=== PATIENT | male | born 1950 | race Caucasian/White ===

== ENCOUNTER 2017-09-15 12:51 | Outpatient (CLI) | payer MEDICARE, BC | END 2017-09-15 12:52 | disposition home or self-care (01) | LOC: LABBT 12:51 | PROVIDERS: ATTEND Neurological Surgery | DX: Z01.818 Encounter for other preprocedural examination (principal); M54.12 Radiculopathy, cervical region ==

== ENCOUNTER 2017-09-21 09:47 | Day surgery (SDC) | payer MEDICARE, BC ==
[2017-09-15 13:11] VITALS: BMI 36.0
--- NOTE | 2017-09-20 21:31 | HP ---
HISTORY OF PRESENT ILLNESS: Mr. Resendiz is the of a patient of ours, Michelle Resendiz, who is here for evaluation of right upper extremity C7 radiculopathy. MRI from [facility] reveals ne uroforaminal narrowing of moderate to severe degree throughout the cervical spine, but particularly t o the right at C6-C7. He has not treated this with anything yet, however, but would like to pursue s urgery if possible. PHYSICAL EXAMINATION: The patient is alert and oriented x3. Gait is normal, no ataxia. Upper extre mity motor exam is normal. He has a positive Spurling's to the right. Reflexes are equal and presen t bilaterally at the biceps tendon. PAST MEDICAL HISTORY: Significant for leg and back problems. CURRENT MEDICATIONS: Tramadol. ALLERGIES: No known drug allergies. PAST SURGICAL HISTORY: Appendectomy. ASSESSMENT: Cervical radiculopathy. PLAN: Dr. Calderon met with the patient, reviewed imaging, and ultimately advocated for a C6-C7 ACDF. He explained to the patient the risks, benefits, and alternatives of the procedure. The patient expr essed understanding and would like to move forward with surgery as discussed. I do believe the patie nt is mentally competent and capable of making medical decisions for himself and we will move forward with surgery as planned.
[2017-09-21] MEDS ORDERED: CEFAZOLIN/Water 2 GM/20 ML SYRINGE ONE ×2 (10:13→15:07)
[2017-09-21] MEDS ORDERED: Fentanyl 250 MCG/5 ML VIAL ONE (10:30)
[2017-09-21] MEDS ORDERED: Midazolam HCl 2 mg/2 ml Vial ONE (10:30)
[2017-09-21] MEDS ORDERED: Thrombin 5000 UNITS/5 ML VIAL ONE (10:31)
[2017-09-21] MEDS ORDERED: Fentanyl 100 MCG/2 ML VIAL ONE (12:42)
--- NOTE | 2017-09-21 14:34 | OP ---
DATE OF PROCEDURE: 09/21/2017 SURGEON: Dr. Leoncio Calderon. CREDIT UNION TELLER: Jose Stiles PA-C. INDICATION: Pain. DIAGNOSIS: C7 radiculopathy. PROCEDURE: Anterior cervical discectomy and fusion. ANESTHESIA: General. TECHNIQUE: The patient was brought into the operating room and placed under general anesthesia. He was placed on the table in supine position. A transverse incision was planned over the lateral aspec t of the neck on the right. After prepping and draping and after an appropriate operative pause, the incision was created. The underlying platysma muscle was identified and incised. A blunt tissue pl ane anterior to the sternocleidomastoid muscle was used to gain access to the prevertebral space. Se lf-retaining retractors were placed in the wound for optimal exposure. There was a large anterior os teophyte covering, the disk space at C6-C7. In fact, the two adjacent superior cephalad disks also a ppeared to be fused anteriorly. The osteophyte was removed. Disk material was removed. There was a partially calcified partially fused disk segment at this location at C6-C7. After decompressing the disk and decompressing over the exiting C7 nerve root, lordotic PEEK cage packed with allograft and autograft material was placed within the interbody space. Due to a fairly rigid bony fusion along th e lateral confines of C6-C7, I chose not to put an anterior cervical plate or screws in. The wound w as irrigated. Hemostasis was maintained throughout. The wound was then closed in anatomic layers an d a pressure dressing was applied. There were no known procedure complications.
[2017-09-21] MEDS ORDERED: Tamsulosin HCl 0.4 MG CAP ONE (14:58)
[2017-09-21] MEDS ORDERED: Glycopyrrolate 0.2 MG/ML 5 ML SYRINGE ONE (16:24)
[2017-09-21] MEDS ORDERED: Dexamethasone 20 MG/5 ML VIAL ONE (16:24)
[2017-09-21] MEDS ORDERED: Lidocaine 1% PF 5 ML VIAL ONE (16:24)
[2017-09-21] MEDS ORDERED: Propofol 200 MG/20 ML VIAL ONE (16:24)
[2017-09-21] MEDS ORDERED: Vecuronium 10 MG VIAL ONE (16:24)
[2017-09-21] MEDS ORDERED: Ondansetron HCl/PF 4 MG/2 ML Vial ONE (16:24)
== END 2017-09-21 15:25 | disposition home or self-care (01) ==
LOC: SDC 09:47
PROVIDERS: ATTEND Neurological Surgery
PROC: 0RG20A0 Fusion of 2 or more Cervical Vertebral Joints with Interbody Fusion Device, Anterior Approach, Anterior Column, Open Approach (ICD-10-PCS; principal; 2017-09-21)
DX: M54.12 Radiculopathy, cervical region (principal); Z79.899 Other long term (current) drug therapy; Z90.49 Acquired absence of other specified parts of digestive tract
CPT/HCPCS: 76001; 96374; J1100; J1170; J2001; J2250; J2405; J2704; J3010

== ENCOUNTER 2017-11-22 12:34 | Outpatient (CLI) | payer MEDICARE, BC ==
--- NOTE | 2017-11-22 13:28 | RAD ---
CERVICAL SPINE THREE VIEWS: History: N54.12 cervical radiculopathy. Comparison: None. FINDINGS: Open mouth odontoid view is normal. Severe degenerative disc space height loss at C4-5, C5-6. There i s a discectomy spacer at C6-7. No acute fracture or malalignment. Anterolisthesis is present at C3 over C4, approximately 2 mm. IMPRESSION: Degenerative changes. No acute abnormality. POS: YASEMIN
== END 2017-11-22 12:35 | disposition home or self-care (01) ==
LOC: TBSIIMAG 12:34
PROVIDERS: ATTEND Neurological Surgery
DX: M47.22 Other spondylosis with radiculopathy, cervical region (principal)
CPT/HCPCS: 72040

== ENCOUNTER 2024-09-28 00:44 | Inpatient (IN) | payer MEDICARE, BC ==
[2024-09-29] MEDS ORDERED: Calcium Carbonate 500 MG ChewTAB PO PRN (01:12)
[2024-09-29] MEDS ORDERED: Senokot S 8.6-50 MG TAB PO PRN (01:12)
[2024-09-29] MEDS ORDERED: traMADol HCl 50 MG TAB PO PRN (01:12)
[2024-09-29] MEDS ORDERED: Nitroglycerin 0.4 MG TAB (25 Tab Bottle) SL PRN (01:12)
[2024-09-29] MEDS ORDERED: Diltiazem HCl/D5W 125 MG in Premix 1 BAG IVPB SCH (01:30)
[2024-09-29 01:40] VITALS: BMI 34.9
[2024-09-29] MEDS: Magnesium 2 GM/50 ML(in water) 2 GM in Premix 1 BAG IVPB SCH (01:58)
[2024-09-29] MEDS: Acetaminophen 325 MG TAB PO PRN (02:00)
[2024-09-29] MEDS: Diltiazem HCl/D5W 125 MG in Premix 1 BAG IVPB SCH (02:29)
[2024-09-29] MEDS: Nicotine 14 MG PATCH TD PRN (02:46)
[2024-09-29] MEDS: Communication Order-Pharmacy FS ONE (03:25)
[2024-09-29 04:31] LABS: #Basophils 0.05 10x3/uL (0.0-0.2); %Basophils 0.6 % (0.0-1.0); %Eosinophils 1.4 % (0.0-10.0); %Lymphocytes 22.6 % (21.0-51.0); %Monocytes 10.8 % (0.0-10.0); %Neutrophils 64.2 % (42.0-75.0); Hematocrit 45.2 % (42.0-52.0); Hemoglobin 15.8 g/dL (14.0-18.0); Mean Corpuscular Hemoglobin 34.6 pg (27.0-31.0); Mean Corpuscular Volume 99.1 fL (78.0-98.0); Mean Platelet Volume 8.9 fL (7.4-10.4); Platelet Count 168 10x3/uL (130-400); RBC Distribution Width 12.9 % (11.5-14.5); Red Blood Cell (RBC) Count 4.56 mill/uL (4.70-6.10)
[2024-09-29 04:52] LABS: Hemoglobin A1c 5.1 % (4.0-6.0)
[2024-09-29 04:58] LABS: Anion Gap 15 mmol/L (10-20); BUN (Urea Nitrogen) 18 mg/dL (8.4-25.7); Calc. Creatinine Clearance 106 mL/min (70-130); Calcium 9.2 mg/dL (7.8-10.44); Carbon Dioxide 25 mmol/L (23-31); Cardiac Risk 2.7 (Less than 4.5); Chloride 103 mmol/L (98-107); Cholesterol 163 mg/dl (< 200 Desired); Estimated GFR 90; Glucose 131 mg/dL (83-110); HDL Cholesterol 60 mg/dL (>60 Neg Risk); LDL Cholesterol, Calculated 70 mg/dL; Potassium 3.7 mmol/L (3.5-5.1); Sodium 139 mmol/L (136-145); Triglycerides 163 mg/dL (Less than 150)
[2024-09-29] MEDS: Enoxaparin 100 MG (1 mL) SYRINGE SC SCH (08:26)
[2024-09-29] MEDS: Famotidine 20 MG TAB PO SCH (08:27)
[2024-09-29] MEDS: Thiamine 100 MG TAB PO SCH (08:27)
[2024-09-29] MEDS: Metoprolol Tartrate 25 MG TAB PO SCH (08:27)
[2024-09-29] MEDS: Cyanocobalamin (Vitamin B-12) 1,000 MCG TAB PO SCH (08:27)
[2024-09-29] MEDS: Multivit, Therapeutic 1 TAB PO SCH (08:27)
[2024-09-29] MEDS: Potassium Chloride 20 MEQ TAB PO SCH (08:27)
[2024-09-29] MEDS: Folic Acid 1 MG TAB PO SCH (08:27)
[2024-09-30 05:16] LABS: #Basophils 0.07 10x3/uL (0.0-0.2); %Basophils 0.8 % (0.0-1.0); %Eosinophils 1.5 % (0.0-10.0); %Lymphocytes 25.4 % (21.0-51.0); %Monocytes 12.3 % (0.0-10.0); %Neutrophils 59.6 % (42.0-75.0); Hematocrit 44.1 % (42.0-52.0); Hemoglobin 15.4 g/dL (14.0-18.0); Mean Corpuscular HGB CONC 34.9 g/dL (32.0-36.0); Mean Corpuscular Hemoglobin 34.7 pg (27.0-31.0); Mean Corpuscular Volume 99.3 fL (78.0-98.0); Mean Platelet Volume 8.9 fL (7.4-10.4); Platelet Count 159 10x3/uL (130-400); Red Blood Cell (RBC) Count 4.44 mill/uL (4.70-6.10)
[2024-09-30 06:41] LABS: Chloride 106 mmol/L (98-107); Sodium 136 mmol/L (136-145)
[2024-09-30 06:42] LABS: Calcium 9.7 mg/dL (7.8-10.44); Glucose 95 mg/dL (83-110)
[2024-09-30 06:44] LABS: Anion Gap 16 mmol/L (10-20); Carbon Dioxide 19 mmol/L (23-31)
[2024-09-30 06:46] LABS: BUN (Urea Nitrogen) 19 mg/dL (8.4-25.7); Calc. Creatinine Clearance 119 mL/min (70-130); Estimated GFR 94
[2024-09-30 06:48] LABS: Magnesium 1.9 mg/dL (1.6-2.6); Potassium 4.7 mmol/L (3.5-5.1)
[2024-09-30] MEDS: Nicotine 21 MG PATCH TD SCH (08:10)
[2024-09-30] MEDS: dilTIAZem 125 MG in Sodium Chloride 0.9% 100 ML IVPB SCH (13:15)
[2024-10-01] MEDS: Diltiazem HCl/D5W 125 MG in Premix 1 BAG IVPB SCH (02:21)
[2024-10-01 04:16] LABS: Hematocrit 43.2 % (42.0-52.0); Hemoglobin 15.2 g/dL (14.0-18.0); Platelet Count 166 10x3/uL (130-400)
[2024-10-01 10:26] LABS: Anion Gap 13 mmol/L (10-20); BUN (Urea Nitrogen) 17 mg/dL (8.4-25.7); Calc. Creatinine Clearance 127 mL/min (70-130); Calcium 9.4 mg/dL (7.8-10.44); Carbon Dioxide 18 mmol/L (23-31); Chloride 106 mmol/L (98-107); Estimated GFR 95; Glucose 108 mg/dL (83-110); Magnesium 1.8 mg/dL (1.6-2.6); Potassium 4.4 mmol/L (3.5-5.1); Sodium 133 mmol/L (136-145)
[2024-10-01 11:34] LABS: Hematocrit 46.4 % (42.0-52.0); Mean Corpuscular HGB CONC 34.5 g/dL (32.0-36.0); Mean Corpuscular Hemoglobin 35.2 pg (27.0-31.0); Mean Corpuscular Volume 102.2 fL (78.0-98.0); Mean Platelet Volume 9.1 fL (7.4-10.4); Platelet Count 171 10x3/uL (130-400); RBC Distribution Width 12.9 % (11.5-14.5); Red Blood Cell (RBC) Count 4.54 mill/uL (4.70-6.10)
[2024-10-01] MEDS: Magnesium 2 GM/50 ML(in water) 2 GM in Premix 1 BAG IVPB SCH ×2 (16:11→16:38)
[2024-10-01] MEDS: dilTIAZem 125 MG, Admixture Fee 1 EACH in Sodium Chloride 0.9% 100 ML IVPB SCH (18:33)
[2024-10-02 04:40] LABS: Anion Gap 15 mmol/L (10-20); BUN (Urea Nitrogen) 17 mg/dL (8.4-25.7); Calc. Creatinine Clearance 125 mL/min (70-130); Carbon Dioxide 19 mmol/L (23-31); Chloride 107 mmol/L (98-107); Estimated GFR 95; Glucose 86 mg/dL (83-110); Potassium 4.2 mmol/L (3.5-5.1); Sodium 137 mmol/L (136-145)
[2024-10-02 07:59] VITALS: TEMP 98.5
[2024-10-02 08:48] LABS: #Basophils 0.08 10x3/uL (0.0-0.2); %Basophils 0.9 % (0.0-1.0); %Eosinophils 1.4 % (0.0-10.0); %Lymphocytes 19.1 % (21.0-51.0); %Monocytes 13.2 % (0.0-10.0); %Neutrophils 64.8 % (42.0-75.0); Hematocrit 45.7 % (42.0-52.0); Hemoglobin 15.9 g/dL (14.0-18.0); Mean Corpuscular HGB CONC 34.8 g/dL (32.0-36.0); Mean Corpuscular Hemoglobin 35.2 pg (27.0-31.0); Mean Corpuscular Volume 101.1 fL (78.0-98.0); Mean Platelet Volume 9.3 fL (7.4-10.4); Platelet Count 168 10x3/uL (130-400); RBC Distribution Width 12.8 % (11.5-14.5); Red Blood Cell (RBC) Count 4.52 mill/uL (4.70-6.10)
[2024-10-02] MEDS ORDERED: Midazolam HCl 2 mg/2 ml Vial ONE (09:49)
[2024-10-02] MEDS ORDERED: fentaNYL 50 mcg/mL 1 mL Vial ONE (09:49)
[2024-10-02] MEDS ORDERED: Lidocaine Viscous Sol 2% 15 ml UD Cup ONE (10:15)
[2024-10-02 11:58] VITALS: BP 96/66
[2024-10-02] MEDS: Apixaban 5 MG TAB PO SCH (12:40)
[2024-10-02] MEDS: dilTIAZem CD 180 MG CAP PO SCH (12:40)
[2024-10-02] MEDS: FLU (Fluad Triv) TS24-25 (65UP)/MF59C/PF 45 MCG/0.5 ML Syringe IM ONE (12:41)
[2024-10-02] MEDS ORDERED: Dronedarone HCl 400 MG TAB PO SCH (17:00)
[2024-10-02] MEDS ORDERED: Apixaban 5 MG TAB PO SCH (21:00)
[2024-10-03] MEDS ORDERED: dilTIAZem CD 180 MG CAP PO SCH (09:00)
== END 2024-10-02 15:00 | disposition home or self-care (01) | DRG 310 ==
LOC: OBS 20:07 → PCU 10-01 11:27
PROVIDERS: ADMIT Internal Medicine; ATTEND Internal Medicine
PROC: B24BZZ4 Ultrasonography of Heart with Aorta, Transesophageal (ICD-10-PCS; principal; 2024-10-02)
PROC: 5A2204Z Restoration of Cardiac Rhythm, Single (ICD-10-PCS; 2024-10-02)
DX: I48.92 Unspecified atrial flutter (principal); I10 Essential (primary) hypertension; E83.42 Hypomagnesemia; N40.0 Benign prostatic hyperplasia without lower urinary tract symptoms; E66.9 Obesity, unspecified; Z68.35 Body mass index [BMI] 35.0-35.9, adult; Z90.49 Acquired absence of other specified parts of digestive tract; Z98.890 Other specified postprocedural states; I48.91 Unspecified atrial fibrillation; M25.551 Pain in right hip; Z79.899 Other long term (current) drug therapy; F10.90 Alcohol use, unspecified, uncomplicated
CPT/HCPCS: 36415; 71045; 80048; 80053; 80061; 83036; 83735; 83880; 84443; 84484; 85014; 85018; 85025; 85027; 85049; 85379; 85610; 85730; 92960; 93005; 93306; 93312; 94760; 96365; 96366; 96372; 96375; 96376; 99152; 99153; J1650; J2250; J3010; J3475

== ENCOUNTER 2024-12-06 14:42 | Outpatient (CLI) | payer MEDICARE, BC ==
[2024-12-06 15:36] LABS: %Basophils 1.2 % (0.0-1.0); %Eosinophils 1.8 % (0.0-10.0); %Lymphocytes 25.6 % (21.0-51.0); %Neutrophils 57.8 % (42.0-75.0); Hematocrit 48.5 % (42.0-52.0); Hemoglobin 16.9 g/dL (14.0-18.0); Mean Corpuscular HGB CONC 34.8 g/dL (32.0-36.0); Mean Corpuscular Hemoglobin 34.2 pg (27.0-31.0); Mean Corpuscular Volume 98.2 fL (78.0-98.0); Mean Platelet Volume 8.6 fL (7.4-10.4); Platelet Count 173 10x3/uL (130-400); RBC Distribution Width 12.4 % (11.5-14.5); Red Blood Cell (RBC) Count 4.94 mill/uL (4.70-6.10)
[2024-12-06 15:53] LABS: Anion Gap 15 mmol/L (10-20); BUN (Urea Nitrogen) 18 mg/dL (8.4-25.7); Calc. Creatinine Clearance 0 mL/min (70-130); Calcium 9.9 mg/dL (7.8-10.44); Carbon Dioxide 23 mmol/L (23-31); Chloride 105 mmol/L (98-107); Estimated GFR 92; Glucose 86 mg/dL (83-110); Potassium 4.2 mmol/L (3.5-5.1); Sodium 139 mmol/L (136-145)
[2024-12-06 16:09] LABS: INR-International Normal Ratio 1.2; Prothrombin Time 14.9 sec (12.0-14.7)
[2024-12-06 16:10] LABS: PTT 28.5 sec (22.9-36.1)
== END 2024-12-06 14:43 | disposition home or self-care (01) ==
LOC: LABBT 14:42
PROVIDERS: ATTEND Internal Medicine Cardiovascular Disease
DX: Z01.812 Encounter for preprocedural laboratory examination (principal); I48.92 Unspecified atrial flutter
CPT/HCPCS: 80048; 85025; 85610; 85730